=== PATIENT | female | born 1970 | race African-American/Black ===

== ENCOUNTER 2019-03-30 00:13 | Observation (INO) ==
[2019-03-30] MEDS ORDERED: ASPIRIN 325 MG TABLET PO STA (00:33)
[2019-03-30] MEDS ORDERED: NITROGLYCERIN 2% OINT 1 INCH/GM PACK TOP STA (00:33)
[2019-03-30] MEDS ORDERED: HYDROmorphone 2 MG/1 ML VIAL IV STA (00:33)
[2019-03-30] MEDS ORDERED: ALUM/MAG/SIMETH/LIDO VISC 1:1 30 ML BOTTLE PO STA (00:33)
[2019-03-30] MEDS ORDERED: ONDANSETRON 4 MG/2 ML VIAL IV STA (00:33)
[2019-03-30 00:54] LABS: Basophils % 0.6 % (0.0-0.8); Eosinophils # 0.3 10*3/uL (0.0-0.87); Eosinophils % 6.3 % (0.00-10.9); Hematocrit 41.6 VOL% (35.7-47.0); Hemoglobin 13.7 GM/DL (12.0-16.0); Immature Granulocytes % 0.2 %; Immature Granulocytes Absolute 0.01 #; Lymphocytes # 2.1 10*3/uL (1.4-4.0); Lymphocytes % 44.1 % (21.3-54.2); Mean Corpuscular HGB Conc 32.9 GM/DL (32-36); Mean Corpuscular Volume 98.6 FL (87-102); Mean Platelet Volume 8.7 FL (9.6-12.0); Monocytes % 8.4 % (1.7-12.7); Neutrophils % 40.4 % (38.7-73.9); Platelet Count 256 T/CUMM (130-400); Red Blood Count 4.22 MC/CUMM (3.8-5.5); Red Cell Distribution Width 12.8 % (9.3-17.3); White Blood Count 4.8 T/CUMM (4-12)
[2019-03-30 00:58] LABS: Alanine Aminotransferase 14 U/L (13-56); Albumin 3.4 G/DL (3.4-5.0); Alkaline Phosphatase 39 U/L (45-117); Aspartate Amino Transferase 10 U/L (0-37); Bilirubin,Total < 0.39 MG/DL (0.2-1.0); Blood Urea Nitrogen 11 MG/DL (7-18); Calcium 8.8 MG/DL (8.5-10.1); Estimated Glom Filtration Rate 104 ML/MIN; Glucose 88 MG/DL (74-106); INR 0.9; Osmolality,Calculated 276.4 MOS/KG (273-304); PT Patient Result 10.3 SECS (9.6-12.2)
[2019-03-30] MEDS ORDERED: GLUCAGON 1 MG VIAL IM PRN (01:30)
[2019-03-30] MEDS ORDERED: ONDANSETRON 4 MG/2 ML VIAL IV PRN (01:30)
[2019-03-30] MEDS ORDERED: DEXTROSE 50% 25 GM/50 ML VIAL IV PRN (01:30)
[2019-03-30] MEDS ORDERED: ACETAMINOPHEN 325 MG TABLET PO PRN (03:19)
[2019-03-30 04:25] LABS: Risk Ratio 3.02
[2019-03-30] MEDS: NITROGLYCERIN 2% OINT 1 INCH/GM PACK TOP SCH ×2 (06:09→11:50)
[2019-03-30 06:27] LABS: Apearance,Urine CLEAR (Clear); Bilirubin,Urine Negative (Negative); Blood, Urine Negative (Negative); Glucose,Urine (UA) Negative (Negative); Hyaline Casts,Urine 1 /LPF (0-3); Ketones,Urine Negative (Negative); Mucus,Urine Occasional /LPF (Occasional); Nitrite,Urine Negative (Negative); Protein,Urine Negative; RBC,Urine 1 /HPF (0-4); Squamous Epithelial Cell,Urine Occasional /HPF (0-10); Urine Color Yellow (Yellow); Urine Specific Gravity 1.026 (1.001-1.035); WBC,Urine 1 /HPF (0-6)
[2019-03-30 06:39] LABS: Barbiturates Screen,Urine Negative (Negative); Benzodiazepines Screen,Urine Negative (Negative); Cannabinoid Screen,Urine Negative (Negative); Opiate Screen,Urine Positive (Negative); Phencyclidine Screen,Urine Negative (Negative)
[2019-03-30] MEDS ORDERED: ENOXAPARIN 40 MG/0.4 ML SYRINGE SUBCUT SCH (09:00)
[2019-03-30 12:07] VITALS: BP 123/78
[2019-03-30] MEDS ORDERED: POTASSIUM CHLORIDE 20 MEQ TABLET PO ONE (13:13)
[2019-03-31] MEDS ORDERED: POTASSIUM CHLORIDE 20 MEQ TABLET PO SCH (09:00)
[2019-03-31] MEDS ORDERED: ASPIRIN EC 325 MG TABLET PO SCH (09:00)
== END 2019-03-30 14:23 | disposition home health service (06) ==
LOC: N.ED 00:13 → N.EDINP 00:13 → N.2W 02:24
PROVIDERS: ADMIT Internal Medicine; ATTEND Internal Medicine